=== PATIENT | female | born 1955 ===

== ENCOUNTER 2022-02-02 05:15 | Day surgery (SDC) | payer OTHER ==
[~2022-02-02] VITALS: Ht 157.5 cm; Wt 74.4 kg
[~2022-02-02 05:15] MED LIST: KLOR-CON M2020 MEQ; ZESTRIL20 MG PO
== END 2022-02-02 10:35 | disposition home or self-care (01) ==
LOC: CIR.AMB 05:15
PROVIDERS: ATTEND Orthopaedic Surgery
DX: M75.121 Complete rotator cuff tear or rupture of right shoulder, not specified as traumatic (principal); M75.21 Bicipital tendinitis, right shoulder; M24.111 Other articular cartilage disorders, right shoulder; I25.10 Atherosclerotic heart disease of native coronary artery without angina pectoris; J45.909 Unspecified asthma, uncomplicated; G43.909 Migraine, unspecified, not intractable, without status migrainosus; M75.01 Adhesive capsulitis of right shoulder